=== PATIENT | female | born 1990 | race Caucasian/White ===

== ENCOUNTER 2021-05-14 02:51 | Emergency (ER) | payer SELFPAY ==
[~2021-05-14] VITALS: Ht 162.6 cm; Wt 64.0 kg
[2021-05-14 07:12] LABS: CLARITY URINE CLEAR (CLEAR); COLOR URINE YELLOW (YELLOW); KETONES URINE NEGATIVE (NEGATIVE); LEUKOCYTE ESTERASE URINE NEGATIVE (NEGATIVE); NITRITE URINE NEGATIVE (NEGATIVE); OCCULT BLOOD URINE NEGATIVE (NEGATIVE); PH URINE 5.5 (4.5-8.0); PROTEIN URINE NEGATIVE (NEGATIVE); UROBILINOGEN URINE 0.2 E.U./dL (0.2-1.0)
[2021-05-14 07:26] LABS: *AMPHETAMINES SCREEN URINE NEGATIVE (NEGATIVE); *BARBITURATES SCREEN URINE NEGATIVE (NEGATIVE); *BENZODIAZEPINES SCREEN URINE NEGATIVE (NEGATIVE); *COCAINE SCREEN URINE NEGATIVE (NEGATIVE); METHADONE URINE SCREEN NEGATIVE (NEGATIVE); OPIATES URINE SCREEN NEGATIVE (NEGATIVE); PHENCYCLIDINE URINE SCREEN NEGATIVE (NEGATIVE)
[2021-05-14 07:28] LABS: CANNABINOID URINE SCREEN PRESUMTIVE POSITIVE (NEGATIVE)
[2021-05-14] MEDS ORDERED: LORAZEPAM 2MG/ML CPJ IM STA ×3 (07:51→08:35)
[2021-05-14 07:53] LABS: BASOPHILS % 0.4 % (0.0-2.0); HEMATOCRIT. 46.6 % (36.0-48.0); HEMOGLOBIN. 15.4 g/dL (12.0-16.0); LYMPHOCYTES % 19.6 % (20.0-50.0); MEAN CORPUSCULAR HEMOGLOBIN 30.4 pg (28.0-32.0); MEAN CORPUSCULAR VOLUME 91.7 fL (81.0-99.0); MEAN PLATELET VOLUME 9.4 fl (7.4-10.4); MONOCYTES % 3.8 % (2.0-8.0); NEUTROPHILS % 76.2 % (40.0-76.0); PLATELET 307 x1000/uL (130-400); RED BLOOD CELL COUNT 5.09 mill/uL (4.2-5.4); RED CELL DISTRIBUTION WIDTH 13.5 % (11.6-14.6)
[2021-05-14 07:55] LABS: CHLORIDE 114 mEq/L (98-107)
[2021-05-14] MEDS ORDERED: OLANZAPINE 10 MG/VIAL IM ONE (08:00)
[2021-05-14 08:05] LABS: ETHANOL BLOOD 294 mg/dL
[2021-05-14 11:27] VITALS: BP 103/65
[2021-05-14] MEDS ORDERED: VALPROATE SODIUM 250MG/5ML UDC PO SCH (14:00)
[2021-05-14] MEDS ORDERED: OLANZAPINE 5MG TABLET ODT PO SCH (17:00)
== END 2021-05-14 14:08 | disposition home or self-care (01) ==
LOC: EDSEX 02:51 → ER 03:11
DX: F10.129 Alcohol abuse with intoxication, unspecified (principal); Y90.8 Blood alcohol level of 240 mg/100 ml or more; Z20.822 Contact with and (suspected) exposure to COVID-19; F91.8 Other conduct disorders; F12.90 Cannabis use, unspecified, uncomplicated
CPT/HCPCS: 36415; 80053; 80305; 80320; 81003; 81025; 85025; 96372; 99284; C9803; J2060; J3490; U0003; U0005; G0480